=== PATIENT | female | born 2000 | race Caucasian/White ===

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

== ENCOUNTER 2018-09-09 13:49 | Emergency (ER) | payer OTHER ==
[~2018-09-09] VITALS: Ht 149.9 cm; Wt 53.5 kg
[~2018-09-09 13:49] MED LIST changes: +INTESTINEX680 M1 PO
[2018-09-09] MEDS ORDERED: NABUMETONE500 MG PO (14:06)
== END 2018-09-09 18:41 | disposition home or self-care (01) ==
LOC: ER 13:49 → CPU-OBS 14:02 → ER 14:02
DX: R07.89 Other chest pain (principal); F41.8 Other specified anxiety disorders
CPT/HCPCS: G0378; G0379; 93005

== ENCOUNTER 2019-03-25 12:28 | Emergency (ER) | payer OTHER ==
[~2019-03-25] VITALS: Ht 149.9 cm; Wt 54.4 kg
[~2019-03-25 12:28] MED LIST changes: +NABUMETONE500 MG PO
[2019-03-25] MEDS ORDERED: AMOX-CLAV 500-1 EACH PO (13:21)
== END 2019-03-25 13:30 | disposition home or self-care (01) ==
LOC: ER 12:28
DX: A05.9 Bacterial foodborne intoxication, unspecified (principal)

== ENCOUNTER 2019-06-29 20:38 | Emergency (ER) | payer OTHER ==
[~2019-06-29] VITALS: Ht 149.9 cm; Wt 61.7 kg
[~2019-06-29 20:38] MED LIST changes: +AMOX-CLAV 500-1 EACH PO
== END 2019-06-29 21:02 | disposition home or self-care (01) ==
LOC: ER 20:38
DX: M77.51 Other enthesopathy of right foot and ankle (principal)

== ENCOUNTER → 2020-10-16 | Emergency (ER) | payer OTHER | END | disposition left against medical advice (07) | LOC: ER 03:23 | DX: Z53.20 Procedure and treatment not carried out because of patient's decision for unspecified reasons (principal) ==

== ENCOUNTER 2021-10-10 18:57 | Emergency (ER) | payer OTHER ==
[~2021-10-10] VITALS: Ht 124.5 cm; Wt 58.1 kg
[2021-10-10] MEDS ORDERED: NABUMETONE750 MG PO (20:11)
== END 2021-10-10 22:07 | disposition home or self-care (01) ==
LOC: ER 18:57
DX: M54.2 Cervicalgia (principal)